=== PATIENT | female | born 1940 | race Caucasian/White ===

== ENCOUNTER 2019-04-04 14:04 | Emergency (ER) | payer MEDICARE ==
[2019-04-04 18:15] LABS: ABS Basophils 0.1 10^3/ul (0-0.2); ABS Eosinophils 0.3 10^3/ul (0-0.6); ABS Lymphocytes 3.4 10^3/ul (1.0-4.8); ABS Monocytes 0.6 10^3/ul (0-0.8); ABS Neutrophils 3.4 10^3/ul (1.5-7.7); Eosinophil % 3.4 %; Hematocrit 38 % (35-47); Hemoglobin 12.8 g/dL (12.0-16.0); Lymphocyte % 44.4 %; Mean Corpuscular HGB Conc 34 g/dL (31-36); Mean Corpuscular Hemoglobin 29 pg (27-31); Mean Corpuscular Volume 86 fL (80-97); Mean Platelet Volume 7.3 fL (7.4-10.4); Nucleated Red Blood Cells % 0.1; Platelet Count 289 10^3/uL (150-450); Red Blood Count 4.38 10^6 /uL (3.70-4.87); Red Cell Distribution Width 14 % (10-15); White Blood Count 7.7 10^3/uL (3.5-10.8)
[2019-04-04 18:23] LABS: Activated Partial Thrombo Time 31.9 seconds (26.0-38.0); INR 0.97 (0.82-1.09)
[2019-04-04] MEDS ORDERED: Ketorolac INJ* 30 MG/ML 1 ML VIAL IV PUSH ONE (18:28)
[2019-04-04] MEDS ORDERED: Ondansetron INJ* 2 MG/ML VIAL IV ONE (18:28)
[2019-04-04] MEDS ORDERED: NS 0.9% 1000 ML** 1,000 ML IV ONE (18:28)
--- NOTE | 2019-04-04 18:31 | ED ---
Complex/Multi-Sys Presentation - HPI Summary HPI Summary: This patient is a 78 year old F presenting to ED with a chief complaint of RUQ abdominal pain since a couple days ago and bilateral LE swelling and charley horses since 0200 this morning. Patient reports she has neuropathy in her legs, but the swelling and charley horses, which is worse in her right LE, is new. The pain in her RUQ radiates into the back. Patient is under a lot of stress as her daughter three days ago. She has been taking Xanax for grief. The patient rates the pain 8/10 in severity. Symptoms aggravated by nothing. Symptoms alleviated by nothing. Patient denies fevers, chills, N/V/D, chest pain , SOB. - History Of Current Complaint Chief Complaint: EDGeneral Time Seen by Provider: 04/04/19 17:44 Hx Obtained From: Patient Onset/Duration: Sudden Onset, Lasting Hours - 0200 this morning for bilateral LE swelling, Lasting Days - RUQ pain 2 days ago, Still Present Timing: Constant Severity Currently: Severe Location: Pain At: - RUQ, Radiates To: - Back Aggravating Factor(s): Nothing Alleviating Factor(s): Nothing Associated Signs And Symptoms: Positive: Other - Abdominal pain RUQ, bilateral LE swelling. Negative: SOB, Chest Pain, Nausea, Vomiting, Diarrhea - Allergies/Home Medications Allergies/Adverse Reactions: Allergies Allergy/AdvReac Type Severity Reaction Status Date / Time No Known Allergies Allergy Verified 04/04/19 14:12 PMH/Surg Hx/FS Hx/Imm Hx Endocrine/Hematology History: Reports: Hx Diabetes Cardiovascular History: Reports: Hx Hypertension, Hx Peripheral Vascular Disease Denies: Hx Pacemaker/ICD Respiratory History: Denies: Hx Asthma Musculoskeletal History: Reports: Hx Arthritis, Hx Orthopedic Injury Denies: Hx Osteoporosis Sensory History: Denies: Hx Hearing Aid Neurological History: Reports: Other Neuro Impairments/Disorders - PERIPHERAL NEUROPATHY Psychiatric History: Reports: Hx Anxiety, Hx Depression Denies: Hx Panic Disorder - Cancer History Hx Chemotherapy: No Hx Radiation Therapy: No - Surgical History Surgery Procedure, Year, and Place: HYSTERECTOMY,ORIF RT ELBOW,LEFT FOOT ORIF, CATARACT REPAIR WITH LENS IMPLANT. APPY Hx Anesthesia Reactions: No Infectious Disease History: No Infectious Disease History: Denies: Traveled Outside the [place] in Last 30 Days - Family History Known Family History: Positive: Other - Cancer - Social History Alcohol Use: None Hx Substance Use: No Substance Use Type: Reports: None Hx Tobacco Use: No Smoking Status (MU): Never Smoked Tobacco Review of Systems Negative: Fever, Chills Negative: Chest Pain Negative: Shortness Of Breath Positive: Abdominal Pain - RUQ, radiates into back. Negative: Vomiting, Diarrhea, Nausea Musculoskeletal: Other - Bilateral LE neuropathy and swelling, worse in right LE All Other Systems Reviewed And Are Negative: Yes Physical Exam - Summary Physical Exam Summary: GENERAL: Patient is a well-developed and nourished F who is lying comfortable in the stretcher. Patient is not in any acute respiratory distress. HEAD AND FACE: Normocephalic EYES: PERRLA, EOMI x 2. EARS: Hearing grossly intact. MOUTH: Oropharynx within normal limits. NECK: Supple, trachea is midline, no adenopathy, no JVD, no carotid bruit. CHEST: Symmetric, no tenderness at palpation LUNGS: Clear to auscultation bilaterally. No wheezing or crackles. CVS: Regular rate and rhythm, S1 and S2 present, no murmurs or gallops appreciated. ABDOMEN: tenderness to palpation of RUQ, lump in right mid-quadrant that is also tender to palpation, right CVA tenderness EXTREMITIES: right ankle swollen and mildly tender to palpation NEURO: Alert and oriented x 3. No acute neurological deficits. Speech is normal and follows commands. SKIN: Dry and warm Triage Information Reviewed: Yes Vital Signs On Initial Exam: Initial Vitals Temp Pulse Resp BP Pulse Ox 97.1 F 80 14 174/111 94 04/04/19 14:07 04/04/19 14:07 04/04/19 14:07 04/04/19 14:07 04/04/19 14:07 Vital Signs Reviewed: Yes Diagnostics - Vital Signs Vital Signs Temp Pulse Resp BP Pulse Ox 04/04/19 16:26 98.6 F 68 16 166/80 94 04/04/19 14:07 97.1 F 80 14 174/111 94 - Laboratory Lab Results: Lab Results 04/04/19 04/04/19 Range/Units 18:02 18:02 WBC 7.7 (3.5-10.8) 10^3/uL RBC 4.38 (3.70-4.87) 10^6 /uL Hgb 12.8 (12.0-16.0) g/dL Hct 38 (35-47) % MCV 86 (80-97) fL MCH 29 (27-31) pg MCHC 34 (31-36) g/dL RDW 14 (10-15) % Plt Count 289 (150-450) 10^3/uL MPV 7.3 L (7.4-10.4) fL Neut % (Auto) 43.9 % Lymph % (Auto) 44.4 % Grant % (Auto) 7.2 % Eos % (Auto) 3.4 % Baso % (Auto) 1.1 % Absolute Neuts (auto) 3.4 (1.5-7.7) 10^3/ul Absolute Lymphs (auto) 3.4 (1.0-4.8) 10^3/ul Absolute Monos (auto) 0.6 (0-0.8) 10^3/ul Absolute Eos (auto) 0.3 (0-0.6) 10^3/ul Absolute Basos (auto) 0.1 (0-0.2) 10^3/ul Absolute Nucleated RBC 0.0 10^3/ul Nucleated RBC % 0.1 INR (Anticoag Therapy) 0.97 (0.82-1.09) APTT 31.9 (26.0-38.0) seconds Result Diagrams: 04/04/19 18:02 04/04/19 18:02 Lab Statement: Any lab studies that have been ordered have been reviewed, and results considered in the medical decision making process. - Radiology CXR Radiology Interpretation Completed By: ED Physician Summary of Radiographic Findings: No acute processes, pending official radiology report. R Ankle XR Radiology Interpretation Completed By: ED Physician Summary of Radiographic Findings: No acute fracture or dislocation, pending official radiology report. - CT A/P CT Interpretation Completed By: Radiologist Summary of CT Findings: Left-sided diverticulitis without perforation or abscess. Dr. Mcmillan has reviewed this radiology report. - Ultrasound Gallbladder Ultrasound Interpretation Completed By: Radiologist Summary of Ultrasound Findings: Normal gallbladder ultrasound examination. Dr. Mcmillan has reviewed this radiology report. DVT Ultrasound Interpretation Completed By: Radiologist Summary of Ultrasound Findings: No evidence of deep vein thrombosis. Dr. Mcmillan has reviewed this radiology report. - EKG 1801 Cardiac Rate: NL - 70 BPM EKG Rhythm: Sinus Rhythm Summary of EKG Findings: NSR at 70 BPM, LBBB. Re-Evaluation - Re-Evaluation First Eval Re-Evaluation Time: 20:41 Change: Improved Comment: Patient feels better. Discussed results with patient. Patient will be discharged home with dx of diverticulitis and leg edema. Complex Multi-Symp Course/Dx Course Of Treatment: This patient is a 78 year old F presenting to ED with a chief complaint of RUQ abdominal pain since a couple days ago and bilateral LE swelling since 0200 this morning. EKG at 1801 revealed NSR at 70 BPM, LBBB. In the ED course, patient received Toradol, fluids, Zofran, Ativan, magnesium sulfate, Cipro. CXR revealed No acute processes, pending official radiology report. Right ankle XR revealed No acute fracture or dislocation, pending official radiology report. Gallbladder US revealed normal gallbladder ultrasound examination. DVT US revealed No evidence of deep vein thrombosis. CT A/P revealed Left-sided diverticulitis without perforation or abscess. Patient will be discharged home with dx of peripheral edema one-sided and diverticulitis. I discussed results with patient, and she reports feeling better. She is hemodynamically stable and safe for discharge. Strict return precautions given and she will otherwise follow up with her PCP. - Diagnoses Provider Diagnoses: Peripheral edema, Diverticulitis Discharge - Sign-Out/Discharge Documenting (check all that apply): Patient Departure - Discharge Patient Received Moderate/Deep Sedation with Procedure: No - Discharge Plan Condition: Stable Disposition: HOME Prescriptions: Ciprofloxacin TAB* [Cipro 500 MG TAB*] 500 mg PO BID 10 Days #20 tab metroNIDAZOLE [Flagyl 500 MG TAB] 500 mg PO TID 10 Days #30 tab Patient Education Materials: Diverticulitis (ED), Leg Edema (ED), Diverticulitis Diet (ED) Referrals: Tanya Hull MD [Primary Care Provider] - 3 Days Additional Instructions: Follow up with your primary care physician in 1-3 days. RETURN TO THE EMERGENCY DEPARTMENT FOR CHANGING OR WORSENING SYMPTOMS. - Billing Disposition and Condition Condition: STABLE Disposition: Home - Attestation Statements Document Initiated by Scribe: Yes Documenting Scribe: Quang Ruby Provider For Whom Scribe is Documenting (Include Credential): [place] Mcmillan MD Scribe Attestation: Quang Flynn, scribed for [place] Mcmillan MD on 04/06/19 at 0809. Scribe Documentation Reviewed: Yes Provider Attestation: The documentation as recorded by the scribe, Quang Ruby accurately reflects the service I personally performed and the decisions made by me, [place] Mcmillan MD Status of Scribe Document: Viewed
[2019-04-04 18:32] LABS: Albumin/Globulin Ratio 1.4 (1-3); BUN/Creatinine Ratio 22.4 (8-20); C Reactive Protein 4.79 mg/L (<8.01); Calcium 9.4 mg/dL (8.6-10.3); EGFR African American 89.5 (>60); Globulin 2.9 g/dL (2-4); Magnesium 1.4 mg/dL (1.9-2.7); Potassium 4.2 mmol/L (3.5-5.0); Total Bilirubin 0.4 mg/dL (0.2-1.0); Total Protein 6.9 g/dL (6.4-8.9)
[2019-04-04 18:33] LABS: Troponin I 0.01 ng/mL (<0.04)
[2019-04-04] MEDS ORDERED: Iodixanol* (CONTRAST) 320 MG/ML 100 ML SDV IV ONE (18:37)
[2019-04-04] MEDS ORDERED: Magnesium Sulfate 2 GM IV* 2 GM/50 ML BAG IVPB ONE (19:08)
[2019-04-04] MEDS ORDERED: LORazepam TAB(*) 1 MG PO ONE (19:09)
[2019-04-04] MEDS ORDERED: metroNIDAZOLE TAB* 250 MG PO ONE (20:39)
[2019-04-04] MEDS ORDERED: Ciprofloxacin TAB* 250 MG PO ONE (20:39)
[2019-04-04 21:10] VITALS: BP 164/83
== END 2019-04-04 21:08 | disposition home or self-care (01) ==
LOC: ED 14:04
DX: K57.92 Diverticulitis of intestine, part unspecified, without perforation or abscess without bleeding (principal); R60.0 Localized edema; E11.9 Type 2 diabetes mellitus without complications; I10 Essential (primary) hypertension; I73.9 Peripheral vascular disease, unspecified; Z79.899 Other long term (current) drug therapy
CPT/HCPCS: 36415; 71045; 74177; 76705; 80053; 82150; 82550; 83605; 83690; 83735; 83880; 84484; 85025; 85610; 85730; 86140; 93005; 96361; 96365; 96375; 99282; A9270-GY; J1885; J2405; J3475; Q9967

== ENCOUNTER 2024-09-08 14:37 | Inpatient (IN) ==
[2024-09-08] MEDS: Lactated Ringers SEPSIS* BAG 1,710 ML IV ONE (15:04)
[2024-09-08 15:17] LABS: ABS Basophils 0.1 10^3/uL (0.0-0.1); ABS Lymphocytes 0.5 10^3/uL (1.0-4.8); ABS Monocytes 0.4 10^3/uL (0.0-0.9); ABS Neutrophils 4.9 10^3/uL (1.5-7.6); ABS Nucleated RBC 0.01 10^3/ul; Eosinophil % 0.5 %; Hematocrit 32.9 % (35-45); Lymphocyte % 8.7 %; Mean Corpuscular Hemoglobin 28.2 pg (27-33); Mean Corpuscular Hgb Conc 33.4 g/dL (31-36); Mean Corpuscular Volume 84.4 fL (80-97); Mean Platelet Volume 7.3 fL (7.5-11.2); Nucleated Red Blood Cells % 0.1 %/100WBC (0.0-0.8); Platelet Count 279 10^3/uL (150-450); White Blood Count 5.8 10^3/uL (3.8-11.8)
[2024-09-08 15:28] LABS: INR 1.12 (0.85-1.14)
[2024-09-08] MEDS: Albuterol 2.5mg/3 ml (0.083%) NEB.SOLN INH ONE (15:35)
[2024-09-08] MEDS: Azithromycin 500 mg/250 ml NS 500 MG/250 ML BAG IVPB ONE (15:35)
[2024-09-08] MEDS: cefTRIAXone 1 gm/50 mL D5W 1 GM/50 ML BAG IV ONE (15:35)
[2024-09-08 15:43] LABS: Albumin 3.8 g/dL (3.5-5.7); Albumin/Globulin Ratio 1.2 (1-3); C Reactive Protein 24.43 mg/L (<8.01); Calcium 8.8 mg/dL (8.6-10.3); Creatinine, Serum 1.3 mg/dL (0.51-0.95); Globulin 3.1 g/dL (2-4); Total Bilirubin 0.3 mg/dL (0.2-1.0); Total Protein 6.9 g/dL (6.4-8.9); eGFR CKD-EPI 41.1 (>60)
[2024-09-08 15:59] LABS: Magnesium 1.5 mg/dL (1.9-2.7)
[2024-09-08] MEDS: Furosemide 40 mg/4 ml IV VIAL IV SLOW PU ONE (16:15)
[2024-09-08] MEDS: Albuterol/Ipratropium NEB.SOL (2.5/0.5 MG) 3 ML NEB.SOLN INH ONE (16:16)
[2024-09-08] MEDS: Magnesium Sulfate 2 gm BAG 2 GM/50 ML BAG IVPB ONE (16:19)
[2024-09-08] MEDS: Iodixanol 320 (CONTRAST) 100 ML SDV IV ONE (16:24)
[2024-09-08 18:04] LABS: High Sensitivity Troponin 1 Hr 31 pg/mL (<15)
[2024-09-08] MEDS ORDERED: Dextrose 50% Syringe 50 ml 25 GM/50 ML SYRINGE IV PUSH PRN (19:16)
[2024-09-08] MEDS: Magnesium Sulf 4 GM/100 ML IV 4,000 MG/100 ML BAG IVPB ONE (20:12)
[2024-09-08] MEDS: Heparin 5000 UNITS/ML 1 mL VIAL SUBCUT SCH (22:05)
[2024-09-08] MEDS: Albuterol/Ipratropium NEB.SOL (2.5/0.5 MG) 3 ML NEB.SOLN INH PRN (22:55)
[2024-09-08] MEDS: Furosemide 20 mg/2 ml IV VIAL IV SLOW PU SCH (23:21)
[2024-09-09] MEDS: Insulin GLARGINE 100 un/ml 10 ml VIAL SUBCUT SCH (08:29)
[2024-09-09 08:47] LABS: ABS Monocytes 0.5 10^3/uL (0.0-0.9); ABS Neutrophils 4.1 10^3/uL (1.5-7.6); Hematocrit 28.9 % (35-45); Hemoglobin 9.6 g/dL (11.5-14.3); Lymphocyte % 17.2 %; Mean Corpuscular Hemoglobin 28.1 pg (27-33); Mean Corpuscular Hgb Conc 33.1 g/dL (31-36); Mean Corpuscular Volume 84.8 fL (80-97); Mean Platelet Volume 7.2 fL (7.5-11.2); Nucleated Red Blood Cells % 0.1 %/100WBC (0.0-0.8); Platelet Count 232 10^3/uL (150-450); Red Cell Distribution Width 14.2 % (12-17); White Blood Count 5.5 10^3/uL (3.8-11.8)
[2024-09-09 09:40] LABS: Calcium 8.1 mg/dL (8.6-10.3); Creatinine, Serum 1.55 mg/dL (0.51-0.95); HDL Cholesterol 51.5 mg/dL; Magnesium 2.8 mg/dL (1.9-2.7); Phosphorus 5.3 mg/dL (2.5-5.0); Potassium 4.5 mmol/L (3.5-5.0); eGFR CKD-EPI 33.2 (>60)
[2024-09-09] MEDS: Sulfur Hexaflouride MICROSPHR 25 MG VIAL IV PRN (10:33)
[2024-09-09] MEDS ORDERED: cefTRIAXone 1 gm/50 mL D5W 1 GM/50 ML BAG IV ONE (15:00)
[2024-09-09] MEDS ORDERED: Azithromycin 500 mg/250 ml NS 500 MG/250 ML BAG IVPB SCH (15:00)
[2024-09-09 16:42] LABS: Calcium 8.4 mg/dL (8.6-10.3); Creatinine, Serum 1.77 mg/dL (0.51-0.95); Potassium 4.6 mmol/L (3.5-5.0); eGFR CKD-EPI 28.3 (>60)
[2024-09-10 06:18] LABS: ABS Lymphocytes 1.2 10^3/uL (1.0-4.8); ABS Monocytes 0.4 10^3/uL (0.0-0.9); ABS Neutrophils 2.4 10^3/uL (1.5-7.6); ABS Nucleated RBC 0.01 10^3/ul; Eosinophil % 0.5 %; Hematocrit 28.2 % (35-45); Hemoglobin 9.5 g/dL (11.5-14.3); Lymphocyte % 28.6 %; Mean Corpuscular Hemoglobin 28.3 pg (27-33); Mean Corpuscular Hgb Conc 33.6 g/dL (31-36); Mean Corpuscular Volume 84.4 fL (80-97); Mean Platelet Volume 7.5 fL (7.5-11.2); Nucleated Red Blood Cells % 0.1 %/100WBC (0.0-0.8); Platelet Count 234 10^3/uL (150-450); Red Blood Count 3.34 10^6/uL (3.63-4.92); Red Cell Distribution Width 14.1 % (12-17); White Blood Count 4.1 10^3/uL (3.8-11.8)
[2024-09-10 06:59] LABS: % Iron Saturation 7 % (15-55); .Transferrin 203 mg/dL (203-362); Anion Gap 7 mmol/L (2-16); Blood Urea Nitrogen 41 mg/dL (6-24); CO2 Carbon Dioxide 25 mmol/L (22-32); Calcium 8.1 mg/dL (8.6-10.3); Chloride 97 mmol/L (101-111); Creatinine, Serum 2.03 mg/dL (0.51-0.95); Glucose 104 mg/dL (70-100); Iron < 20 ug/dL (50-212); Magnesium 2.7 mg/dL (1.9-2.7); Phosphorus 6.6 mg/dL (2.5-5.0); Potassium 4.8 mmol/L (3.5-5.0); Sodium 129 mmol/L (135-145); Total Iron Binding Capacity 284 mcg/dL (250-450); Transferrin 203 mg/dL (203-362); Unsaturated Iron Binding 264 ug/dL
[2024-09-10 07:19] LABS: Ferritin 73.3 ng/mL (11-307)
[2024-09-10] MEDS: Furosemide 40 mg/4 ml IV VIAL IV SLOW PU ONE (09:56)
[2024-09-10 10:39] LABS: High Sensitivity Troponin 1 Hr 95 pg/mL (<15)
[2024-09-10] MEDS: Ferric Gluconate IV 250 MG in NS 0.9% 250 ml 200 ML IVPB SCH (13:15)
[2024-09-10 16:17] LABS: Calcium 8.1 mg/dL (8.6-10.3); Creatinine, Serum 2.16 mg/dL (0.51-0.95); Potassium 4.7 mmol/L (3.5-5.0); eGFR CKD-EPI 22.3 (>60)
[2024-09-11 07:04] LABS: Hematocrit 29.3 % (35-45); Hemoglobin 9.9 g/dL (11.5-14.3); Mean Corpuscular Hemoglobin 28.4 pg (27-33); Mean Corpuscular Hgb Conc 33.8 g/dL (31-36); Mean Corpuscular Volume 84.2 fL (80-97); Mean Platelet Volume 7.5 fL (7.5-11.2); Platelet Count 222 10^3/uL (150-450); Red Blood Count 3.48 10^6/uL (3.63-4.92); Red Cell Distribution Width 14.1 % (12-17); White Blood Count 4.8 10^3/uL (3.8-11.8)
[2024-09-11 07:34] LABS: Anion Gap 14 mmol/L (2-16); Blood Urea Nitrogen 47 mg/dL (6-24); CO2 Carbon Dioxide 17 mmol/L (22-32); Calcium 7.6 mg/dL (8.6-10.3); Chloride 94 mmol/L (101-111); Creatinine, Serum 2.29 mg/dL (0.51-0.95); Glucose 63 mg/dL (70-100); Sodium 125 mmol/L (135-145); eGFR CKD-EPI 20.8 (>60)
[2024-09-11] MEDS ORDERED: Senna TAB 8.6 mg TAB PO PRN (08:22)
[2024-09-11] MEDS ORDERED: Polyethylene Glycol 3350 17 GM PACKET PO PRN (08:22)
[2024-09-11] MEDS: Magnesium Hydroxide LIQ 30 ML UDC PO SCH (09:35)
[2024-09-11 16:39] LABS: Urine Creatinine Concentration 79.85 mg/dL (20.00-320.00)
[2024-09-11] MEDS: NS 0.9% 250 ml 250 ML IV SCH (17:05)
[2024-09-11] MEDS: Albuterol/Ipratropium NEB.SOL (2.5/0.5 MG) 3 ML NEB.SOLN INH SCH (17:07)
[2024-09-11 19:48] LABS: Urine Osmo 294 mOsm/kg (150-1150)
[2024-09-11 20:16] LABS: Osmolality Serum 283 mOsm/kg (275-295)
[2024-09-11 22:49] LABS: Urine Appearance Turbid; Urine Bilirubin Negative (Negative); Urine Blood Trace (Negative); Urine Color Light-Yellow; Urine Glucose Trace (Negative); Urine Ketones Negative (Negative); Urine Nitrite Negative (Negative); Urine Protein 2+ (>=100 mg/dL) (Negative); Urine Specific Gravity 1.018 (1.002-1.030); Urine Urobilinogen Negative (Negative); Urine pH 5.5 (5.0-8.0)
[2024-09-11 22:51] LABS: Budding Yeast Present /HPF (Absent); Urine Bacteria Absent /HPF (Absent); Urine Red Blood Cell Trace(0-2/hpf) /HPF (0-Trace); Urine Squamous Epithelial Cell Present /HPF (Absent); Urine White Blood Cell Trace(0-5/hpf) /HPF (0-Trace)
[2024-09-12 06:07] LABS: ABS Eosinophils 0.1 10^3/uL (0.0-0.5); ABS Lymphocytes 1.1 10^3/uL (1.0-4.8); ABS Monocytes 0.4 10^3/uL (0.0-0.9); ABS Nucleated RBC 0.01 10^3/ul; Eosinophil % 1.1 %; Hematocrit 29.2 % (35-45); Hemoglobin 10.1 g/dL (11.5-14.3); Lymphocyte % 24.4 %; Mean Corpuscular Hemoglobin 28.6 pg (27-33); Mean Corpuscular Hgb Conc 34.5 g/dL (31-36); Mean Corpuscular Volume 82.7 fL (80-97); Mean Platelet Volume 7.2 fL (7.5-11.2); Nucleated Red Blood Cells % 0.1 %/100WBC (0.0-0.8); Platelet Count 248 10^3/uL (150-450); Red Blood Count 3.53 10^6/uL (3.63-4.92); Red Cell Distribution Width 13.8 % (12-17); White Blood Count 4.7 10^3/uL (3.8-11.8)
[2024-09-12 06:57] LABS: Calcium 7.7 mg/dL (8.6-10.3); Creatinine, Serum 2.58 mg/dL (0.51-0.95); Potassium 5.3 mmol/L (3.5-5.0)
[2024-09-12] MEDS: methylPREDNISolone SOD SUCC 125 mg 2 ML VIAL IV ONE (07:48)
[2024-09-12 07:49] LABS: PCO2 Arterial 49 mmHg (35-45); PO2 Arterial 68 mmHg (80-100)
[2024-09-12] MEDS: Morphine 2 MG/ML SYRINGE IV ONE ×2 (08:49→09:14)
[2024-09-12] MEDS: Furosemide 40 mg/4 ml IV VIAL IV ONE ×2 (08:49→11:22)
[2024-09-12] MEDS: nitroGLYCERIN DRIP 25,000 MCG/250 ML BTL IV SCH (08:50)
[2024-09-12] MEDS: nitroGLYCERIN DRIP 25,000 MCG/250 ML BTL ONE (08:51)
[2024-09-12] MEDS: Furosemide 40 mg/4 ml IV VIAL ONE ×2 (08:51→17:28)
[2024-09-12] MEDS: cefTRIAXone 1 gm/50 mL D5W 1 GM/50 ML BAG IV SCH (09:03)
[2024-09-12] MEDS: Azithromycin 500 mg/250 ml NS 500 MG/250 ML BAG IVPB SCH (10:09)
[2024-09-12 11:11] LABS: High Sensitivity Troponin 1 Hr 34 pg/mL (<15)
[2024-09-12 11:46] LABS: Urine Appearance Turbid; Urine Bilirubin Negative (Negative); Urine Blood 1+ (Negative); Urine Color Light-Yellow; Urine Glucose 1+ (>=70 mg/dL) (Negative); Urine Ketones Negative (Negative); Urine Nitrite Negative (Negative); Urine Protein 2+ (>=100 mg/dL) (Negative); Urine Specific Gravity 1.015 (1.002-1.030); Urine Urobilinogen Negative (Negative); Urine pH 5.5 (5.0-8.0)
[2024-09-12 11:49] LABS: Urine Amorphous Crystals Present /HPF (Absent); Urine Bacteria Absent /HPF (Absent); Urine Red Blood Cell 1+(3-5/hpf) /HPF (0-Trace); Urine Squamous Epithelial Cell Present /HPF (Absent); Urine White Blood Cell Trace(0-5/hpf) /HPF (0-Trace)
[2024-09-12] MEDS: Aspirin EC 81 mg TAB.EC (enteric coated) PO SCH (12:21)
[2024-09-12 15:39] LABS: Calcium 8.1 mg/dL (8.6-10.3); Creatinine, Serum 3.01 mg/dL (0.51-0.95); Magnesium 2.7 mg/dL (1.9-2.7); Potassium 5.2 mmol/L (3.5-5.0)
[2024-09-12] MEDS: Furosemide 100 mg/10 ml IV VIAL IV ONE (17:28)
[2024-09-12] MEDS: Bumetanide IV 10 MG in Premix IV 0 ML IV SCH (19:16)
[2024-09-13 05:06] LABS: ABS Monocytes 0.3 10^3/uL (0.0-0.9); ABS Neutrophils 3.7 10^3/uL (1.5-7.6); ABS Nucleated RBC 0.01 10^3/ul; Hematocrit 29.4 % (35-45); Hemoglobin 10.3 g/dL (11.5-14.3); Lymphocyte % 20.7 %; Mean Corpuscular Hemoglobin 28.6 pg (27-33); Mean Corpuscular Volume 81.6 fL (80-97); Nucleated Red Blood Cells % 0.2 %/100WBC (0.0-0.8); Platelet Count 294 10^3/uL (150-450); Red Blood Count 3.61 10^6/uL (3.63-4.92); Red Cell Distribution Width 13.7 % (12-17)
[2024-09-13 05:29] LABS: Calcium 8.1 mg/dL (8.6-10.3); Creatinine, Serum 3.3 mg/dL (0.51-0.95); Magnesium 2.8 mg/dL (1.9-2.7); Potassium 5.5 mmol/L (3.5-5.0); eGFR CKD-EPI 13.4 (>60)
[2024-09-13] MEDS: Bumetanide IV 10 MG in Premix IV 0 ML IV SCH ×3 (05:42→19:22)
[2024-09-13 06:15] LABS: Phosphorus 7.7 mg/dL (2.5-5.0)
[2024-09-13] MEDS: Sodium Polystyrene ORAL.SUSP 15 GM/60 ML BTL PO ONE (11:08)
[2024-09-13 11:48] LABS: High Sensitivity Troponin 1 Hr 32 pg/mL (<15)
[2024-09-13] MEDS ORDERED: Bumetanide IV 10 MG in Premix IV 0 ML IV SCH (19:00)
[2024-09-14 04:19] LABS: Albumin 3.2 g/dL (3.5-5.7); Albumin/Globulin Ratio 1.2 (1-3); Calcium 7.8 mg/dL (8.6-10.3); Creatinine, Serum 3.26 mg/dL (0.51-0.95); Globulin 2.6 g/dL (2-4); Magnesium 2.8 mg/dL (1.9-2.7); Phosphorus 7.3 mg/dL (2.5-5.0); Potassium 4.9 mmol/L (3.5-5.0); Total Bilirubin 0.2 mg/dL (0.2-1.0); Total Protein 5.8 g/dL (6.4-8.9); eGFR CKD-EPI 13.6 (>60)
[2024-09-14 04:50] LABS: ABS Lymphocytes 1.1 10^3/uL (1.0-4.8); ABS Monocytes 0.9 10^3/uL (0.0-0.9); ABS Neutrophils 5.2 10^3/uL (1.5-7.6); ABS Nucleated RBC 0.02 10^3/ul; Eosinophil % 0.1 %; Hematocrit 29.6 % (35-45); Hemoglobin 10.2 g/dL (11.5-14.3); Lymphocyte % 14.7 %; Mean Corpuscular Hemoglobin 28.2 pg (27-33); Mean Corpuscular Hgb Conc 34.4 g/dL (31-36); Mean Corpuscular Volume 81.9 fL (80-97); Mean Platelet Volume 7.2 fL (7.5-11.2); Nucleated Red Blood Cells % 0.2 %/100WBC (0.0-0.8); Platelet Count 363 10^3/uL (150-450); Red Blood Count 3.62 10^6/uL (3.63-4.92); Red Cell Distribution Width 13.8 % (12-17); White Blood Count 7.2 10^3/uL (3.8-11.8)
[2024-09-14] MEDS: Bumetanide IV 10 MG in Premix IV 0 ML IV SCH (12:08)
[2024-09-14] MEDS: Morphine 2 MG/ML SYRINGE IV ONE (15:07)
[2024-09-15 04:48] LABS: Hematocrit 29.3 % (35-45); Mean Corpuscular Volume 82.3 fL (80-97); Mean Platelet Volume 6.9 fL (7.5-11.2); Platelet Count 364 10^3/uL (150-450); Red Blood Count 3.56 10^6/uL (3.63-4.92); Red Cell Distribution Width 14.4 % (12-17); White Blood Count 6.7 10^3/uL (3.8-11.8)
[2024-09-15 05:17] LABS: Albumin 3.1 g/dL (3.5-5.7); Albumin/Globulin Ratio 1.2 (1-3); Calcium 7.4 mg/dL (8.6-10.3); Creatinine, Serum 3.2 mg/dL (0.51-0.95); Globulin 2.6 g/dL (2-4); Potassium 4.8 mmol/L (3.5-5.0); Total Bilirubin 0.2 mg/dL (0.2-1.0); Total Protein 5.7 g/dL (6.4-8.9); eGFR CKD-EPI 13.9 (>60)
[2024-09-15 05:56] LABS: ABS Basophils 0.1 10^3/uL (0.0-0.1); ABS Lymphocytes 1.1 10^3/uL (1.0-4.8); ABS Monocytes 0.7 10^3/uL (0.0-0.9); ABS Neutrophils 4.8 10^3/uL (1.5-7.6); ABS Nucleated RBC 0.01 10^3/ul; Eosinophil % 0.5 %; Lymphocyte % 16.7 %; Nucleated Red Blood Cells % 0.2 %/100WBC (0.0-0.8)
[2024-09-15] MEDS: HYDROmorphone 0.5 MG/0.5 ML SYRINGE IV SLOW PU PRN (12:29)
[2024-09-15] MEDS: Isosorbide Mononit ER 30mg TAB PO ONE (17:50)
[2024-09-16 07:53] LABS: ABS Basophils 0.1 10^3/uL (0.0-0.1); ABS Eosinophils 0.1 10^3/uL (0.0-0.5); ABS Lymphocytes 1.5 10^3/uL (1.0-4.8); ABS Monocytes 0.7 10^3/uL (0.0-0.9); ABS Neutrophils 5.5 10^3/uL (1.5-7.6); ABS Nucleated RBC 0.01 10^3/ul; Eosinophil % 1.4 %; Hematocrit 28.7 % (35-45); Lymphocyte % 18.8 %; Mean Corpuscular Hemoglobin 28.7 pg (27-33); Mean Corpuscular Hgb Conc 34.6 g/dL (31-36); Mean Corpuscular Volume 82.7 fL (80-97); Mean Platelet Volume 6.9 fL (7.5-11.2); Nucleated Red Blood Cells % 0.1 %/100WBC (0.0-0.8); Platelet Count 352 10^3/uL (150-450); Red Blood Count 3.47 10^6/uL (3.63-4.92); Red Cell Distribution Width 14.2 % (12-17); White Blood Count 7.8 10^3/uL (3.8-11.8)
[2024-09-16 08:23] LABS: Calcium 7.3 mg/dL (8.6-10.3); Creatinine, Serum 2.65 mg/dL (0.51-0.95); Potassium 4.4 mmol/L (3.5-5.0); eGFR CKD-EPI 17.5 (>60)
[2024-09-16] MEDS: Acetaminophen IV 1 GM/100ML 1,000 MG/100 ML BAG IV PRN (11:56)
[2024-09-16] MEDS: Isosorbide Mononit ER 30mg TAB PO SCH (16:08)
[2024-09-16] MEDS: Albuterol/Ipratropium NEB.SOL (2.5/0.5 MG) 3 ML NEB.SOLN INH PRN (20:38)
[2024-09-17 05:21] LABS: Hematocrit 28.8 % (35-45); Mean Corpuscular Hemoglobin 28.5 pg (27-33); Mean Corpuscular Hgb Conc 34.8 g/dL (31-36); Mean Platelet Volume 6.6 fL (7.5-11.2); Platelet Count 357 10^3/uL (150-450); Red Blood Count 3.51 10^6/uL (3.63-4.92); Red Cell Distribution Width 14.1 % (12-17); White Blood Count 7.2 10^3/uL (3.8-11.8)
[2024-09-17 06:01] LABS: Calcium 7.4 mg/dL (8.6-10.3); Creatinine, Serum 2.05 mg/dL (0.51-0.95); Potassium 4.3 mmol/L (3.5-5.0); eGFR CKD-EPI 23.8 (>60)
[2024-09-17 06:25] LABS: ABS Basophils 0.1 10^3/uL (0.0-0.1); ABS Eosinophils 0.1 10^3/uL (0.0-0.5); ABS Lymphocytes 1.2 10^3/uL (1.0-4.8); ABS Monocytes 0.7 10^3/uL (0.0-0.9); ABS Neutrophils 5.1 10^3/uL (1.5-7.6); ABS Nucleated RBC 0.01 10^3/ul; Eosinophil % 1.8 %; Lymphocyte % 17.1 %; Nucleated Red Blood Cells % 0.1 %/100WBC (0.0-0.8)
[2024-09-18] MEDS: Nystatin TOP POWDER 15 GM BTL TOPICAL SCH (00:10)
[2024-09-18 05:54] LABS: Hematocrit 30.2 % (35-45); Hemoglobin 10.2 g/dL (11.5-14.3); Mean Corpuscular Hemoglobin 27.6 pg (27-33); Mean Corpuscular Hgb Conc 33.6 g/dL (31-36); Mean Corpuscular Volume 82.1 fL (80-97); Platelet Count 393 10^3/uL (150-450); Red Blood Count 3.69 10^6/uL (3.63-4.92); Red Cell Distribution Width 14.7 % (12-17); White Blood Count 7.6 10^3/uL (3.8-11.8)
[2024-09-18 06:14] LABS: Calcium 7.7 mg/dL (8.6-10.3); Creatinine, Serum 1.54 mg/dL (0.51-0.95); Potassium 4.2 mmol/L (3.5-5.0); eGFR CKD-EPI 33.5 (>60)
[2024-09-18 08:08] LABS: ABS Eosinophils 0.1 10^3/uL (0.0-0.5); ABS Lymphocytes 1.5 10^3/uL (1.0-4.8); ABS Monocytes 0.6 10^3/uL (0.0-0.9); ABS Neutrophils 5.3 10^3/uL (1.5-7.6); ABS Nucleated RBC 0.01 10^3/ul; Lymphocyte % 19.4 %; Nucleated Red Blood Cells % 0.1 %/100WBC (0.0-0.8)
[2024-09-19 07:32] LABS: Calcium 7.9 mg/dL (8.6-10.3); Creatinine, Serum 1.18 mg/dL (0.51-0.95); Potassium 4.1 mmol/L (3.5-5.0); eGFR CKD-EPI 46.1 (>60)
[2024-09-19] MEDS: Insulin GLARGINE 100 un/ml 10 ml VIAL SUBCUT SCH (09:18)
[2024-09-20] MEDS: Insulin GLARGINE 100 un/ml 10 ml VIAL SUBCUT SCH (08:22)
[2024-09-22 06:16] LABS: Hematocrit 30.3 % (35-45); Hemoglobin 10.2 g/dL (11.5-14.3); Mean Corpuscular Hgb Conc 33.6 g/dL (31-36); Mean Corpuscular Volume 83.3 fL (80-97); Mean Platelet Volume 7.1 fL (7.5-11.2); Platelet Count 327 10^3/uL (150-450); Red Blood Count 3.63 10^6/uL (3.63-4.92); Red Cell Distribution Width 14.3 % (12-17); White Blood Count 7.8 10^3/uL (3.8-11.8)
[2024-09-22 06:49] LABS: Calcium 8.4 mg/dL (8.6-10.3); Creatinine, Serum 0.97 mg/dL (0.51-0.95); Potassium 4.1 mmol/L (3.5-5.0); eGFR CKD-EPI 58.3 (>60)
[2024-09-22] MEDS: Magnesium Hydroxide LIQ 30 ML UDC PO PRN (16:34)
[2024-09-23 05:24] LABS: Hematocrit 29.9 % (35-45); Hemoglobin 10.3 g/dL (11.5-14.3); Mean Corpuscular Hemoglobin 28.6 pg (27-33); Mean Corpuscular Hgb Conc 34.4 g/dL (31-36); Mean Corpuscular Volume 83.3 fL (80-97); Mean Platelet Volume 6.7 fL (7.5-11.2); Platelet Count 298 10^3/uL (150-450); Red Blood Count 3.59 10^6/uL (3.63-4.92); Red Cell Distribution Width 14.2 % (12-17); White Blood Count 7.5 10^3/uL (3.8-11.8)
[2024-09-23 07:01] LABS: Calcium 8.5 mg/dL (8.6-10.3); Creatinine, Serum 0.94 mg/dL (0.51-0.95); Potassium 3.9 mmol/L (3.5-5.0); eGFR CKD-EPI 60.6 (>60)
[2024-09-24 09:11] LABS: Rapid COVID-19 Molecular Undetected (Undetected)
[2024-09-24 10:01] VITALS: BP 145/67
[2024-09-24 14:27] LABS: SARS Coronavirus-2 Negative (Negative)
== END 2024-09-24 11:00 | DRG 280 ==
LOC: ED 14:37 → EDHOLD 14:37 → SUATTDRO 19:10 → MEDTELE 20:25 → SUATTDRO 09-09 10:47 → ICU 09-12 08:33 → MEDTELE 09-17 16:28
PROVIDERS: ADMIT Internal Medicine; ATTEND Student in an Organized Health Care Education/Training Program